=== PATIENT | female | born 1995 | race Two or more races ===

== ENCOUNTER → 2017-12-26 | Emergency (ER) | payer OTHER ==
[~2017-12-26] VITALS: Ht 165.1 cm; Wt 71.7 kg
[~2017-12-26] MED LIST: ZYRTEC10 M2 PO
== END | disposition home or self-care (01) ==
LOC: ER 22:49
DX: J06.9 Acute upper respiratory infection, unspecified (principal)

== ENCOUNTER 2018-03-14 14:45 | Inpatient (IN) | payer OTHER ==
[~2018-03-14] VITALS: Ht 165.1 cm; Wt 77.6 kg
[2018-04-15] MEDS ORDERED: PRENATAL FORMU1 EAC1 PO (08:46)
[2018-04-15] MEDS ORDERED: FOLIC ACID20 MG PO (08:46)
== END 2018-04-17 12:49 | DRG 775 ==
LOC: LDR 04-12 14:45 → OB/GYN 04-16 08:11
PROC: 10E0XZZ Delivery of Products of Conception, External Approach (ICD-10-PCS; principal; 2018-04-15)
PROC: 4A1HXCZ Monitoring of Products of Conception, Cardiac Rate, External Approach (ICD-10-PCS; 2018-04-15)
PROC: 4A033R1 Measurement of Arterial Saturation, Peripheral, Percutaneous Approach (ICD-10-PCS; 2018-04-15)
DX: O80 Encounter for full-term uncomplicated delivery (principal); Z3A.40 40 weeks gestation of pregnancy; Z37.0 Single live birth; Z22.330 Carrier of Group B streptococcus